=== PATIENT | female | born 1985 | race African-American/Black ===

== ENCOUNTER 2016-10-29 11:31 | Emergency (ER) | payer BC ==
[2016-10-29 11:49] VITALS: BP 105/57
[2016-10-29] MEDS ORDERED: LORazepam 2 MG/ML MDV IVPUSH ONE (12:20)
[2016-10-29] MEDS ORDERED: Albuterol 0.083% 2.5 MG/3 ML Neb Soln NEB ONE (12:20)
--- NOTE | 2016-10-29 12:22 | EDM.PDOC ---
ED HPI GENERAL MEDICAL PROBLEM - General Chief Complaint: Gastrointestinal Problem Stated Complaint: [facility] Time Seen by Provider: 10/29/16 12:12 Source of Information: Reports: Patient History Limitations: Reports: No Limitations - History of Present Illness INITIAL COMMENTS - FREE TEXT/NARRATIVE: Patient is a 30-year-old female who presents to the ED with a history of cough for the past 3 weeks. States this morning while going to court patient started to cough excessively causing cough-induced vomiting. She's vomited multiple times secondary to the cough. She was sent to the ED for further evaluation. States this past Friday she was evaluated by PCP diagnosed with seasonal allergies and started on Singulair and Claritin. She's been taking these medications as prescribed. States she is feeling quite anxious with the onset of symptoms. In addition she found out she had a bench warrant and was concerned about going to prison only exacerbating the cough. She has no fever no chills. Cough is nonproductive. She continues to have some sinus congestion and postnasal drip. Throat pain is minimal. She has no ear pain. Chest Pain Score (Numeric/FACES): 4 Abdominal Pain Score (Numeric/FACES): 3 - Related Data Allergies Allergy/AdvReac Type Severity Reaction Status Date / Time benzoyl peroxide Allergy Anaphylactic Verified 10/29/16 11:40 Shock latex Allergy Burning Verified 10/29/16 11:40 shellfish derived Allergy Anaphylactic Verified 10/29/16 11:40 Shock Home Meds: Home Meds Multivitamin with Minerals [Hair, Skin & Nails] 1 tab PO DAILY 08/27/15 [History ] Multivits,Ca,Minerals/Iron/FA [Women's Daily Formula Caplet] 1 tab PO DAILY 08/06 [History] Folic Acid 1 mg PO DAILY 03/30/16 [History] Nitrofurantoin [place]/Macrocryst [Macrobid] 100 mg PO BID 03/30/16 [History] Benzonatate [Tessalon Perles] 100 mg PO TID #21 cap 10/29/16 [Rx] Past Medical History - Past Health History Medical/Surgical History: Denies Medical/Surgical History HEENT History: Reports: Impaired Vision Other HEENT History: wears eyeglasses. 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 History: Reports: Headaches, Chronic - Infectious Disease History Infectious Disease History: Reports: Chicken Pox Social & Family History - Family History Family Medical History: Noncontributory - Tobacco Use Smoking Status *Q: Never Smoker Second Hand Smoke Exposure: No - Caffeine Use Caffeine Use: Reports: None - Recreational Drug Use Recreational Drug Use: No Drug Use in Last 12 Months: Yes Recreational Drug Type: Reports: Marijuana/Hashish Recreational Drug Use Frequency: Monthly - Living Situation & Occupation Living situation: Reports: Single, with Significant Other Occupation: Employed ED ROS GENERAL - Review of Systems Review Of Systems: See Below Constitutional: Denies: Fever, Chills, Decreased Appetite HEENT: Reports: Other (sinus congestion). Denies: Ear Pain, Rhinitis, Sinus Problem, Throat Pain (mild irritation), Throat Swelling Respiratory: Reports: Shortness of Breath, Cough. Denies: Wheezing, Pleuritic Chest Pain, Sputum, Hemoptysis GI/Abdominal: Reports: Nausea, Vomiting Neurological: Reports: No Symptoms Psychiatric: Reports: Anxiety ED EXAM, GENERAL - Physical Exam Exam: See Below Exam Limited By: No Limitations General Appearance: Alert, WD/WN, Anxious Ears: Normal External Exam, Normal Canal, Hearing Grossly Normal Nose: Normal Inspection, Normal Mucosa, No Blood Throat/Mouth: Normal Inspection, Normal Oropharynx, Normal Voice, No Airway Compromise Head: Atraumatic, Normocephalic Neck: Normal Inspection, Supple, Non-Tender. No: Lymphadenopathy (L), Lymphadenopathy (R) Respiratory/Chest: No Respiratory Distress, Lungs Clear, Normal Breath Sounds, No Accessory Muscle Use, Chest Non-Tender Cardiovascular: Normal Peripheral Pulses, Regular Rate, Rhythm, No Murmur Peripheral Pulses: 2+: Radial (L) GI/Abdominal: Normal Bowel Sounds, Soft, Non-Tender, No Organomegaly, No Distention Neurological: Alert, Oriented, CN II-XII Intact, Normal Cognition Psychiatric: Normal Affect, Anxious Skin Exam: Warm, Dry, Intact, Normal Color, No Rash Course - Vital Signs Last Recorded V/S: Last Vital Signs Temp 97.5 F 10/29/16 11:31 Pulse 105 H 10/29/16 11:31 Resp 24 H 10/29/16 11:31 BP 105/57 L 10/29/16 11:31 Pulse Ox 100 10/29/16 12:20 - Orders/Labs/Meds Orders: Active Orders 24 hr Category Date Time Status RT Aerosol Therapy [RC] ASDIRECTED Care 10/29/16 12:20 Active Chest 2V [CR] Stat Exams 10/29/16 12:20 Taken Labs: Laboratory Tests 10/29/16 10/29/16 10/29/16 Range/Units 12:30 12:30 12:30 WBC 6.80 (3.98-10.04) K/mm3 RBC 4.71 (3.98-5.22) M/mm3 Hgb 13.2 (11.2-15.7) gm/L Hct 40.5 (34.1-44.9) % MCV 86.0 (79.4-94.8) fl MCH 28.0 (25.6-32.2) pg MCHC 32.6 (32.2-35.5) g/dl RDW Std Deviation 41.0 (36.4-46.3) fL Plt Count 326 (182-369) K/mm3 MPV 10.5 (9.4-12.3) fl Neut % (Auto) 48.4 (34.0-71.1) % Lymph % (Auto) 42.2 (19.3-51.7) % [place] % (Auto) 7.6 (4.7-12.5) % Eos % (Auto) 0.9 (0.7-5.8) Baso % (Auto) 0.9 (0.1-1.2) % Neut # (Auto) 3.29 (1.56-6.13) K/mm3 Lymph # (Auto) 2.87 (1.18-3.74) K/mm3 [place] # (Auto) 0.52 H (0.24-0.36) K/mm3 Eos # (Auto) 0.06 (0.04-0.36) K/mm3 Baso # (Auto) 0.06 (0.01-0.08) K/mm3 Sodium 140 (136-145) mEq/L Potassium 3.9 (3.5-5.1) mEq/L Chloride 105 (98-107) mEq/L Carbon Dioxide 23 (21-32) mEq/L Anion Gap 15.9 H (5-15) BUN 13 (7-18) mg/dL Creatinine 0.9 (0.55-1.02) mg/dL Est Cr Clr Drug Dosing 85.56 mL/min Estimated GFR (MDRD) > 60 (>60) mL/min BUN/Creatinine Ratio 14.4 (14-18) Glucose 105 (74-106) mg/dL Calcium 10.1 (8.5-10.1) mg/dL Total Bilirubin 1.0 (0.2-1.0) mg/dL AST 18 (15-37) U/L ALT 19 (14-59) U/L Alkaline Phosphatase 64 (46-116) U/L C-Reactive Protein 0.5 (<1.0) mg/dL Total Protein 8.4 H (6.4-8.2) g/dl Albumin 4.7 (3.4-5.0) g/dl Globulin 3.7 gm/dL Albumin/Globulin Ratio 1.3 (1-2) HCG, Qual Negative (NEGATIVE) Meds: Medications Discontinued Medications Generic Name Dose Route Start Last Admin Trade Name Freq PRN Reason Stop Dose Admin Albuterol 2.5 mg 10/29/16 12:20 10/29/16 12:37 Proventil Neb Soln NEB 10/29/16 12:21 2.5 mg ONETIME ONE Administration Lorazepam 1 mg 10/29/16 12:20 10/29/16 12:25 Ativan IVPUSH 10/29/16 12:21 1 mg ONETIME ONE Administration - Re-Assessments/Exams Free Text/Narrative Re-Assessment/Exam: IV established by ambulance crew. Will obtain basic labs including CBC, chem 14 , CRP, and chest x-ray. Ordered albuterol neb treatment and Ativan 1 mg IVP. Labs reviewed with no concerning findings. CXR revealed normal chest x-ray. This was reviewed with Dr. Villegas. Patients cough has improved. Patients anxiety has settled down. Will discharge patient home with prescription for tessalon perles. Departure - Departure Time of Disposition: 14:26 Disposition: Home, Self-Care 01 Condition: Good Clinical Impression: Post-tussive vomiting, Upper respiratory infection with cough and congestion - Discharge Information Prescriptions: Benzonatate [Tessalon Perles] 100 mg PO TID #21 cap Instructions: Upper Respiratory Infection, Adult, Gastritis, Adult Referrals: Dannielle Lou PA [Primary Care Provider] - Forms: ED Department Discharge, ED Return to Work/School Form Additional Instructions: X-ray and labs were essentially normal. Cough is caused by a viral upper respiratory infection. Continue taking the Claritin and Singuliar as prescribed. Take Tessalon Perles 100 mg 3 times a day as needed. Push the fluids. Ensure adequate rest. Follow-up with her PCP the next week for reevaluation ensure this is resolving. No antibiotics required at this time. Return to ED for any new or worsening symptoms. - My Orders Last 24 Hours: My Active Orders 10/29/16 12:20 RT Aerosol Therapy [RC] ASDIRECTED Chest 2V [CR] Stat - Assessment/Plan Last 24 Hours: My Active Orders 10/29/16 12:20 RT Aerosol Therapy [RC] ASDIRECTED Chest 2V [CR] Stat
--- NOTE | 2016-10-30 08:02 | CR ---
Chest: Two-views of the chest were obtained. Comparison: Previous chest x-ray of 07/26/16. Heart size and mediastinum are within normal limits. Lungs are clear. Bony structures are within normal limits for the patient's age. Impression: 1. Nothing acute is identified on two-view chest x-ray. Diagnostic code #1
== END 2016-10-29 14:37 | disposition home or self-care (01) ==
LOC: SUPCPDRO 11:31 → JD.ED 11:31
DX: J06.9 Acute upper respiratory infection, unspecified (principal); R11.10 Vomiting, unspecified; Z79.899 Other long term (current) drug therapy; Z88.8 Allergy status to other drugs, medicaments and biological substances; Z91.013 Allergy to seafood; Z91.040 Latex allergy status
CPT/HCPCS: 36415; 71020; 80053; 84703; 85025; 86140; 94664; 96374; 99285; J2060; 99284

== ENCOUNTER 2016-10-30 08:13 | Emergency (ER) | payer BC ==
[2016-10-30] MEDS ORDERED: Codeine/Promethazine 10-6.25 MG/5 ML Syrup 5 ML UD Cup PO ONE (08:42)
[2016-10-30] MEDS ORDERED: Ondansetron 4 MG Tab.DIS PO ONE (08:42)
--- NOTE | 2016-10-30 08:55 | EDM.PDOC ---
ED HPI GENERAL MEDICAL PROBLEM - General Chief Complaint: Gastrointestinal Problem Stated Complaint: VOMITING Time Seen by Provider: 10/30/16 08:27 Source of Information: Reports: Patient History Limitations: Reports: No Limitations - History of Present Illness INITIAL COMMENTS - FREE TEXT/NARRATIVE: The patient presents from the clinic with complaints of not feeling well, cough , nausea and vomiting. She says she has not felt well for about 3 weeks. She had a productive cough that has gotten worse. She will cough to the point of vomiting. She has no fever or chills. She was here yesterday. She was arrested yesterday and she was at the [facility] and was coughing and vomiting. She was sent here by ambulance and was evaluated. She had a normal CXR and labs. She was given ativan and albuterol. She felt better and went home. She was given tensilon pearls for the cough. She went to [facility] today and they could not get her nausea and cough under control and they sent her here for evaluation. Onset: Gradual Duration: Week(s): (3) Improves with: Reports: None Worsens with: Reports: None Associated Symptoms: Reports: Cough, cough w sputum, Headaches, Nausea/Vomiting , Shortness of Breath. Denies: No Other Symptoms, Chest Pain, Fever/Chills Generalized Pain Score (Numeric/FACES): 9 - Related Data Allergies Allergy/AdvReac Type Severity Reaction Status Date / Time benzoyl peroxide Allergy Anaphylactic Verified 10/30/16 08:20 Shock latex Allergy Burning Verified 10/30/16 08:20 shellfish derived Allergy Anaphylactic Verified 10/30/16 08:20 Shock Home Meds: Home Meds Multivitamin with Minerals [Hair, Skin & Nails] 1 tab PO DAILY 08/27/15 [History ] Multivits,Ca,Minerals/Iron/FA [Women's Daily Formula Caplet] 1 tab PO DAILY 08/06 [History] Folic Acid 1 mg PO DAILY 03/30/16 [History] Nitrofurantoin [place]/Macrocryst [Macrobid] 100 mg PO BID 03/30/16 [History] Benzonatate [Tessalon Perles] 100 mg PO TID #21 cap 10/29/16 [Rx] Azithromycin [IJD: Azithromycin] 250 mg PO DAILY #6 tab 10/30/16 [Rx] Codeine/Promethazine [Phenergan with Codeine] 5 - 10 ml PO Q6HR PRN #300 ml 12/08 [Rx] Past Medical History - Past Health History Medical/Surgical History: Denies Medical/Surgical History HEENT History: Reports: Impaired Vision Other HEENT History: wears eyeglasses. 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, Chronic - Infectious Disease History Infectious Disease History: Reports: Chicken Pox Social & Family History - Family History Family Medical History: Noncontributory - Tobacco Use Smoking Status *Q: Never Smoker Second Hand Smoke Exposure: No - Caffeine Use Caffeine Use: Reports: None - Recreational Drug Use Recreational Drug Use: Yes Drug Use in Last 12 Months: Yes Recreational Drug Type: Reports: Marijuana/Hashish Recreational Drug Use Frequency: Monthly - Living Situation & Occupation Living situation: Reports: Single, with Significant Other Occupation: Employed ED ROS GENERAL - Review of Systems Review Of Systems: See Below Constitutional: Reports: No Symptoms HEENT: Reports: No Symptoms Respiratory: Reports: Shortness of Breath, Cough Cardiovascular: Reports: No Symptoms Endocrine: Reports: No Symptoms GI/Abdominal: Reports: No Symptoms : Reports: No Symptoms Musculoskeletal: Reports: No Symptoms Skin: Reports: No Symptoms Neurological: Reports: Headache ED EXAM, GI/ABD - Physical Exam Exam: See Below Exam Limited By: No Limitations General Appearance: Alert, No Apparent Distress Ears: Normal External Exam Nose: Normal Inspection Head: Atraumatic, Normocephalic Neck: Normal Inspection Respiratory/Chest: No Respiratory Distress, Lungs Clear, Normal Breath Sounds Cardiovascular: Regular Rate, Rhythm, No Edema, No Murmur GI/Abdominal Exam: Soft, Non-Tender, No Organomegaly, No Mass Back Exam: Normal Inspection Extremities: Normal Inspection Course - Vital Signs Last Recorded V/S: Last Vital Signs Temp 97.7 F 10/30/16 08:20 Pulse 98 10/30/16 08:20 Resp 28 H 10/30/16 08:20 BP 91/68 10/30/16 08:20 Pulse Ox 100 10/30/16 08:20 - Orders/Labs/Meds Orders: Active Orders 24 hr Category Date Time Status B. PERTUSSIS ABS, IGA, IGG,IGM [REF] Stat Lab 10/30/16 08:42 Ordered Meds: Medications Discontinued Medications Generic Name Dose Route Start Last Admin Trade Name Alfa PRN Reason Stop Dose Admin Ondansetron HCl 4 mg 10/30/16 08:42 Zofran Odt PO 10/30/16 08:43 ONETIME ONE Promethazine HCl/Codeine 10 ml 10/30/16 08:42 10/30/16 09:01 Phenergan With Codeine PO 10/30/16 08:43 10 ml ONETIME ONE Administration - Re-Assessments/Exams Free Text/Narrative Re-Assessment/Exam: 10/30/16 08:57 I will order a pertussis and give her phenergan with codeine and zofran 4mg ODT. 10/30/16 09:33 She did not want the zofran but the phenergan with codeine made her feel better. I will discharge her home with zithromax and some phenergan with codeine. Departure - Departure Time of Disposition: 09:35 Disposition: Home, Self-Care 01 Condition: Good Clinical Impression: Post-tussive vomiting, Bronchitis - Discharge Information Prescriptions: Codeine/Promethazine [Phenergan with Codeine] 5 - 10 ml PO Q6HR PRN #300 ml PRN Reason: Cough Azithromycin [IJD: Azithromycin] 250 mg PO DAILY #6 tab Referrals: Dannielle Lou PA [Primary Care Provider] - 1 Week Forms: ED Department Discharge Additional Instructions: Take the zithromax 2 pills on day 1 and 1 pill on days 2 through 5. Take the phenergan with codein 5 to 10mls by mouth every 6 hours as needed for cough. We will call you with the pertussis results. That may take a week. Please return if you are worse. - My Orders Last 24 Hours: My Active Orders 10/30/16 08:42 B. PERTUSSIS ABS, IGA, IGG,IGM [REF] Stat - Assessment/Plan Last 24 Hours: My Active Orders 10/30/16 08:42 B. PERTUSSIS ABS, IGA, IGG,IGM [REF] Stat
[2016-10-30 10:08] VITALS: BP 141/98
== END 2016-10-30 09:55 | disposition home or self-care (01) ==
LOC: JD.ED 08:13
DX: R11.2 Nausea with vomiting, unspecified (principal); J40 Bronchitis, not specified as acute or chronic; Z79.2 Long term (current) use of antibiotics; Z91.040 Latex allergy status; Z91.013 Allergy to seafood; Z88.8 Allergy status to other drugs, medicaments and biological substances; Z91.048 Other nonmedicinal substance allergy status
CPT/HCPCS: 87798; 99284; A9270; 99283

== ENCOUNTER 2017-01-14 18:20 | Emergency (ER) | payer BC, OTHER ==
[2017-01-14 18:34] VITALS: BP 147/99
[2017-01-14] MEDS ORDERED: Sodium Chloride 0.9% 10 ML Syringe FLUSH PRN (19:09)
[2017-01-14] MEDS ORDERED: Ondansetron 4 MG/2 ML SDV IVPUSH ONE (19:11)
[2017-01-14] MEDS ORDERED: Famotidine 20 MG/2 ML SDV IVPUSH ONE (19:12)
[2017-01-14] MEDS ORDERED: Iopamidol 612 MG/ML 100 ML Bottle IVPUSH ONE (19:19)
[2017-01-14] MEDS ORDERED: Sodium Chloride 0.9% 10 ML Syringe FLUSH ONE (19:19)
[2017-01-14] MEDS ORDERED: Metoclopramide 10 MG/2 ML SDV IVPUSH ONE (20:01)
--- NOTE | 2017-01-14 20:14 | CT ---
CT chest Technique: Multiple axial sections through the chest were obtained. Intravenous contrast was utilized. Comparison: No prior chest CT, previous chest x-ray of 10/29/16. Findings: Small portion of the visualized upper abdominal structures appear within normal limits. No pericardial effusion is seen. Mediastinum and hilar regions show no adenopathy or mass. Small lymph nodes within both axillary regions are seen which are felt to be within normal limits. Lungs are clear. No parenchymal densities are seen. No pleural effusion or pneumothorax is seen. Bone window settings were reviewed which appear within normal limits for the patient's age. Impression: 1. No abnormality is identified on CT study of the chest. Diagnostic code #1
--- NOTE | 2017-01-14 20:42 | EDM.PDOC ---
ED HPI GENERAL MEDICAL PROBLEM - General Chief Complaint: Chest Pain Stated Complaint: CHEST PAIN Time Seen by Provider: 01/14/17 18:42 Source of Information: Reports: Patient History Limitations: Reports: No Limitations - History of Present Illness INITIAL COMMENTS - FREE TEXT/NARRATIVE: 31-year-old female presents from the snf for evaluation treatment of chest pain. Patient reports that when she was first incarcerated on Friday she had to blow into some type of apparatus. She states thats when she first developed chest pain. She states that is steadily worsening of afternoon. She reports that she is having sharp stabbing chest pain. Reports associated symptoms of nausea and hemotemisis. Reports that she has vomited about 10 times today. No abdominal pain or diarrhea. She states that it hurts to breathe or cough. Reports that the pain radiates into her neck, bilateral arms and into her back. She denies any fevers. Patient denies any cardiac history self. She is not on any medications. . Does not her family history. 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: maalox given a long term Chest Pain Score (Numeric/FACES): 7 - Related Data Allergies Allergy/AdvReac Type Severity Reaction Status Date / Time adhesive tape Allergy Itching Verified 10/30/16 09:44 benzoyl peroxide Allergy Anaphylactic Verified 10/30/16 08:20 Shock latex Allergy Burning Verified 10/30/16 08:20 shellfish derived Allergy Anaphylactic Verified 10/30/16 08:20 Shock Home Meds: Home Meds Multivitamin with Minerals [Hair, Skin & Nails] 1 tab PO DAILY 08/27/15 [History ] Multivits,Ca,Minerals/Iron/FA [Women's Daily Formula Caplet] 1 tab PO DAILY 08/06 [History] Folic Acid 1 mg PO DAILY 03/30/16 [History] Omeprazole 20 mg PO DAILY #30 cap.cr 01/14/17 [Rx] Ondansetron [Zofran ODT] 4 mg PO Q8H PRN #15 tab.dis 01/14/17 [Rx] Past Medical History - Past Health History Medical/Surgical History: Denies Medical/Surgical History HEENT History: Reports: Impaired Vision Other HEENT History: wears eyeglasses. 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: Neurological History: Reports: Headaches, Chronic - Infectious Disease History Infectious Disease History: Reports: Chicken Pox Social & Family History - Family History Family Medical History: Noncontributory - Tobacco Use Smoking Status *Q: Never Smoker Second Hand Smoke Exposure: No - Caffeine Use Caffeine Use: Reports: None - Recreational Drug Use Recreational Drug Use: Yes Drug Use in Last 12 Months: Yes Recreational Drug Type: Reports: Marijuana/Hashish Recreational Drug Use Frequency: Monthly - Living Situation & Occupation Living situation: Reports: Single, with Significant Other Occupation: Employed ED ROS GENERAL - Review of Systems Review Of Systems: See Below Constitutional: Denies: Fever Respiratory: Reports: Shortness of Breath, Cough, Other (dyspnea) Cardiovascular: Reports: Chest Pain GI/Abdominal: Reports: Hematemesis, Nausea, Vomiting. Denies: Abdominal Pain, Diarrhea Musculoskeletal: Reports: Neck Pain, Arm Pain, Back Pain ED EXAM, GENERAL - Physical Exam Exam: See Below Exam Limited By: No Limitations General Appearance: Alert, WD/WN, Moderate Distress Ears: Normal External Exam Nose: Normal Inspection Throat/Mouth: Normal Inspection, Normal Oropharynx, Normal Voice, No Airway Compromise Neck: Normal Inspection Respiratory/Chest: No Respiratory Distress, Lungs Clear, Normal Breath Sounds Cardiovascular: Normal Peripheral Pulses, Regular Rate, Rhythm, No Murmur GI/Abdominal: Soft, Non-Tender Neurological: Alert, Oriented, Normal Cognition Psychiatric: Normal Affect, Normal Mood Skin Exam: Warm, Dry, Normal Color EKG INTERPRETATION EKG Date: 01/14/17 Time: 19:20 Rhythm: NSR Rate (Beats/Min): 74 [place]: Normal P-Wave: Present QRS: Normal ST-T: Normal QT: Normal EKG Interpretation Comments: NSR at 74 bpm. No acute changes. Reviewed by myself and Dr. Montes De Oca Course - Vital Signs Last Recorded V/S: Last Vital Signs Temp 36.4 C 01/14/17 18:30 Pulse 95 01/14/17 18:30 Resp BP 147/99 H 01/14/17 18:30 Pulse Ox - Orders/Labs/Meds Labs: Laboratory Tests 01/14/17 01/14/17 01/14/17 Range/Units 18:40 18:40 18:40 WBC 8.52 (3.98-10.04) K/mm3 RBC 4.74 (3.98-5.22) M/mm3 Hgb 13.6 (11.2-15.7) gm/L Hct 40.3 (34.1-44.9) % MCV 85.0 (79.4-94.8) fl MCH 28.7 (25.6-32.2) pg MCHC 33.7 (32.2-35.5) g/dl RDW Std Deviation 41.6 (36.4-46.3) fL Plt Count 380 H (182-369) K/mm3 MPV 10.8 (9.4-12.3) fl Neutrophils % (Manual) 62 H (40-60) % Band Neutrophils % 0 (0-10) % Lymphocytes % (Manual) 30 (20-40) % Atypical Lymphs % 0 % Monocytes % (Manual) 5 (2-10) % Eosinophils % (Manual) 1 (0.7-5.8) % Basophils % (Manual) 2 H (0.1-1.2) Platelet Estimate Adequate Plt Morphology Comment Normal RBC Morph Comment Normal D-Dimer, Quantitative 0.26 (0.19-0.59) mg/L Sodium 140 (136-145) mEq/L Potassium 3.6 (3.5-5.1) mEq/L Chloride 103 (98-107) mEq/L Carbon Dioxide 22 (21-32) mEq/L Anion Gap 18.6 H (5-15) BUN 16 (7-18) mg/dL Creatinine 1.0 (0.55-1.02) mg/dL Est Cr Clr Drug Dosing 73.35 mL/min Estimated GFR (MDRD) > 60 (>60) mL/min BUN/Creatinine Ratio 16.0 (14-18) Glucose 109 H (74-106) mg/dL Calcium 10.3 H (8.5-10.1) mg/dL Total Bilirubin 1.5 H (0.2-1.0) mg/dL AST 19 (15-37) U/L ALT 18 (14-59) U/L Alkaline Phosphatase 78 (46-116) U/L Troponin I < 0.017 (0.00-0.056) ng/mL Total Protein 8.8 H (6.4-8.2) g/dl Albumin 4.5 (3.4-5.0) g/dl Globulin 4.3 gm/dL Albumin/Globulin Ratio 1.1 (1-2) Lipase 65 L (73-393) U/L HCG, Qual (NEGATIVE) 01/14/17 Range/Units 18:40 WBC (3.98-10.04) K/mm3 RBC (3.98-5.22) M/mm3 Hgb (11.2-15.7) gm/L Hct (34.1-44.9) % MCV (79.4-94.8) fl MCH (25.6-32.2) pg MCHC (32.2-35.5) g/dl RDW Std Deviation (36.4-46.3) fL Plt Count (182-369) K/mm3 MPV (9.4-12.3) fl Neutrophils % (Manual) (40-60) % Band Neutrophils % (0-10) % Lymphocytes % (Manual) (20-40) % Atypical Lymphs % % Monocytes % (Manual) (2-10) % Eosinophils % (Manual) (0.7-5.8) % Basophils % (Manual) (0.1-1.2) Platelet Estimate Plt Morphology Comment RBC Morph Comment D-Dimer, Quantitative (0.19-0.59) mg/L Sodium (136-145) mEq/L Potassium (3.5-5.1) mEq/L Chloride (98-107) mEq/L Carbon Dioxide (21-32) mEq/L Anion Gap (5-15) BUN (7-18) mg/dL Creatinine (0.55-1.02) mg/dL Est Cr Clr Drug Dosing mL/min Estimated GFR (MDRD) (>60) mL/min BUN/Creatinine Ratio (14-18) Glucose (74-106) mg/dL Calcium (8.5-10.1) mg/dL Total Bilirubin (0.2-1.0) mg/dL AST (15-37) U/L ALT (14-59) U/L Alkaline Phosphatase (46-116) U/L Troponin I (0.00-0.056) ng/mL Total Protein (6.4-8.2) g/dl Albumin (3.4-5.0) g/dl Globulin gm/dL Albumin/Globulin Ratio (1-2) Lipase (73-393) U/L HCG, Qual Negative (NEGATIVE) Meds: Medications Discontinued Medications Generic Name Dose Route Start Last Admin Trade Name Alfa PRN Reason Stop Dose Admin Famotidine 20 mg 01/14/17 19:12 01/14/17 19:20 Pepcid IVPUSH 01/14/17 19:13 20 mg ONETIME ONE Administration Iopamidol 100 ml 01/14/17 19:19 01/14/17 19:55 Isovue-300 (61%) IVPUSH 01/14/17 19:20 100 ml ONETIME ONE Administration Metoclopramide HCl 10 mg 01/14/17 20:01 01/14/17 20:17 Reglan IVPUSH 01/14/17 20:02 10 mg ONETIME ONE Administration Ondansetron HCl 4 mg 01/14/17 19:11 01/14/17 19:20 Zofran IVPUSH 01/14/17 19:12 4 mg ONETIME ONE Administration Sodium Chloride 10 ml 01/14/17 19:09 01/14/17 19:22 Saline Flush FLUSH 10 ml ASDIRECTED PRN Administration Keep Vein Open Sodium Chloride 10 ml 01/14/17 19:19 01/14/17 19:55 Saline Flush FLUSH 01/14/17 19:20 10 ml ONETIME ONE Administration - Radiology Interpretation Free Text/Narrative:: CT of the chest with IV contrast impression per Vrad 1. Normal chest CT. No signs of esophageal rupture. - Re-Assessments/Exams Free Text/Narrative Re-Assessment/Exam: 01/14/17 20:48 I reviewed the chest CT, EKG and lab results with the patient. I fill this is gastritis. I'll give her some Zofran as needed for nausea and some omeprazole for the discomfort. I'll have her follow up in 1-2 weeks for recheck of her symptoms. Her discomfort has resolved with medication. Discharge instructions as documented. Departure - Departure Time of Disposition: 20:47 Disposition: Home, Self-Care 01 Condition: Good Clinical Impression: Gastroesophageal reflux disease Prescriptions: Omeprazole 20 mg PO DAILY #30 cap.cr Ondansetron [Zofran ODT] 4 mg PO Q8H PRN #15 tab.dis PRN Reason: Nausea Instructions: Food Choices for Gastroesophageal Reflux Disease, Adult, Easy-to- Read, Gastroesophageal Reflux Disease, Adult Referrals: PCP,None [Primary Care Provider] - Forms: ED Department Discharge Additional Instructions: Omeprazole 1 tablet daily. Zofran 1 tab sublingual every 8 hours as needed for nausea. Recommend avoiding spicy foods. Follow-up with family medicine within 1-2 weeks for recheck of your symptoms. If you need a family practice provider in [place] recommend [facility] or [facility]. Please call [phone] to schedule with either one of these providers. Please return to the ER if your symptoms change or worsen.
--- NOTE | 2017-01-15 08:06 | CR ---
Chest: Portable view of the chest was obtained. Comparison: Prior chest x-ray of 10/29/16. Heart size and mediastinum are within normal limits. Lungs are clear. Bony structures are grossly intact. Impression: 1. Nothing acute is identified on portable chest x-ray. Diagnostic code #1
== END 2017-01-14 21:16 | disposition home or self-care (01) ==
LOC: JD.ED 18:20
DX: K21.9 Gastro-esophageal reflux disease without esophagitis (principal); Z91.040 Latex allergy status; Z91.013 Allergy to seafood
CPT/HCPCS: 36415; 71010; 71260; 80053; 83690; 84484; 84703; 85025; 85379; 93005; 96374; 96375; 99285; J2405; J2765; J7050; Q9967

== ENCOUNTER 2017-06-14 13:59 | Emergency (ER) | payer MEDICAID, OTHER ==
[2017-06-14 14:12] VITALS: BP 109/75
--- NOTE | 2017-06-14 14:54 | EDM.PDOC ---
ED HPI GENERAL MEDICAL PROBLEM - General Chief Complaint: Respiratory Problem Stated Complaint: COUGH Time Seen by Provider: 06/14/17 14:46 Source of Information: Reports: Patient History Limitations: Reports: No Limitations - History of Present Illness INITIAL COMMENTS - FREE TEXT/NARRATIVE: 31-year-old female presents to the ED with severe paroxysmal productive cough. Sputum was initially dark green but is now more clear. The problem is she can't stop coughing. She costal almost she blacks out or has emesis. She does not have a history of asthma. She does not smoke cigarettes. Doesn't remember developing any body aches headaches or severe fever chills at the initial onset of illness over 8 days ago. 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 Onset: Sudden Onset Date: 06/06/17 Duration: Day(s): Location: Reports: Chest (Severe paroxysmal cough occasionally productive.) Quality: Reports: Other Severity: Moderate (Hurts to cough so much in her mid chest) Improves with: Reports: None Worsens with: Reports: Other (Exposure to cool night air and cigarette smoke.), Movement (Worse with certain movements in supine position) Context: Reports: Sick Contact. Denies: Activity, Exercise, Lifting, Trauma, Other (Coworker) Associated Symptoms: Reports: Chest Pain, Cough, cough w sputum, Malaise, Shortness of Breath, Syncope. 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 Chest Pain Score (Numeric/FACES): 9 - Related Data Allergies Allergy/AdvReac Type Severity Reaction Status Date / Time adhesive tape Allergy Itching Verified 06/14/17 14:13 benzoyl peroxide Allergy Anaphylactic Verified 06/14/17 14:13 Shock latex Allergy Burning Verified 06/14/17 14:13 shellfish derived Allergy Anaphylactic Verified 06/14/17 14:13 Shock Home Meds: Home Meds Chlorpheniramine/HYDROcodone [Tussionex Pennkinetic] 5 ml PO Q12H PRN #60 ml [Rx] Levofloxacin [Levaquin] 500 mg PO DAILY #8 tab 06/14/17 [Rx] Past Medical History - Past Health History Medical/Surgical History: Denies Medical/Surgical History HEENT History: Reports: Impaired Vision Other HEENT History: wears eyeglasses. 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: Neurological History: Reports: Headaches, Chronic - Infectious Disease History Infectious Disease History: Reports: Chicken Pox Social & Family History - Family History Family Medical History: Noncontributory - Tobacco Use Smoking Status *Q: Never Smoker Second Hand Smoke Exposure: No - Caffeine Use Caffeine Use: Reports: None - Recreational Drug Use Recreational Drug Use: No Drug Use in Last 12 Months: Yes Recreational Drug Type: Reports: Marijuana/Hashish Recreational Drug Use Frequency: Monthly - Living Situation & Occupation Living situation: Reports: Single, with Significant Other Occupation: Employed ED ROS GENERAL - Review of Systems Review Of Systems: See Below Constitutional: Reports: Fever, Malaise, Weakness, Fatigue, Decreased Appetite, Weight Loss HEENT: Reports: No Symptoms, Throat Pain Respiratory: Reports: Shortness of Breath (Coughing so much), Cough, Sputum. Denies: Wheezing, Pleuritic Chest Pain, Hemoptysis (Mostly clear sputum) Cardiovascular: Reports: Chest Pain, Lightheadedness. Denies: Blood Pressure Problem, Claudication, Dyspnea on Exertion (From coughing so hard at times he nearly blacks out), Edema, Orthopnea (From coughing so much), Palpitations, PND , Syncope Endocrine: Reports: Fatigue GI/Abdominal: Reports: Decreased Appetite : Reports: No Symptoms Musculoskeletal: Reports: No Symptoms Skin: Reports: No Symptoms Neurological: Reports: No Symptoms Psychiatric: Reports: No Symptoms Hematologic/Lymphatic: Reports: No Symptoms Immunologic: Reports: No Symptoms ED EXAM, GENERAL - Physical Exam Exam: See Below Exam Limited By: Physical Impairment General Appearance: Alert (Noted by severe paroxysmal intermittent coughing which makes it difficult for her to even speak.), WD/WN, No Apparent Distress, Other (Does feel mildly warm to palpation.) Eye Exam: Bilateral Eye: Normal Inspection Ears: Other (Is a left serous otitis media. Right TM is normal) Throat/Mouth: Normal Inspection, Normal Lips, Normal Teeth, Normal Oropharynx Head: Atraumatic, Normocephalic Neck: Normal Inspection, Supple, Non-Tender, Full Range of Motion. No: Lymphadenopathy (L), Lymphadenopathy (R) Respiratory/Chest: No Respiratory Distress, No Accessory Muscle Use, Respiratory Distress (Mild tachypnea at rest.), Rhonchi (Scattered fine rhonchi left upper lobe of lung that does not clear with coughing.). No: Wheezing Cardiovascular: Normal Peripheral Pulses, Regular Rate, Rhythm, No Edema, No Gallop, No Murmur Peripheral Pulses: 3+: Posterior Tibial (L), Posterior Tibial (R), Dorsalis Pedis (L), Dorsalis Pedis (R) GI/Abdominal: Normal Bowel Sounds, Soft, Non-Tender, No Organomegaly, No Abnormal Bruit, No Mass, Pelvis Stable Back Exam: Normal Inspection, Full Range of Motion. No: CVA Tenderness (L), CVA Tenderness (R) Extremities: Normal Inspection, Normal Range of Motion, Non-Tender, No Pedal Edema Neurological: Alert, Oriented, Normal Cognition Course - Vital Signs Last Recorded V/S: Last Vital Signs Temp 36.9 C 06/14/17 14:08 Pulse 74 06/14/17 16:55 Resp 19 06/14/17 14:08 BP 109/75 06/14/17 14:08 Pulse Ox 100 06/14/17 16:55 - Orders/Labs/Meds Orders: Active Orders 24 hr Category Date Time Status RT Aerosol Therapy [RC] ASDIRECTED Care 06/14/17 14:55 Active Chest 2V [CR] Stat Exams 06/14/17 15:05 Taken Labs: Laboratory Tests 06/14/17 Range/Units 14:55 Urine HCG, Qual Negative (NEGATIVE) Meds: Medications Discontinued Medications Generic Name Dose Route Start Last Admin Trade Name Freq PRN Reason Stop Dose Admin Budesonide 0.5 mg 06/14/17 14:55 06/14/17 15:12 Pulmicort NEB 06/14/17 14:56 0.5 mg ONETIME ONE Administration - Radiology Interpretation Free Text/Narrative:: 31-year-old female presents to the ED with severe paroxysmal cough to the point of near passing out or having emesis due to the severity of the cough. It's worse when she lies down. Her initial onset of high fever chills or headache to suggest influenza. She is working with a coworker who was diagnosed with pneumonia. She has no history of asthma and is a nonsmoker. Examination reveals no wheezing. There is a few scattered rhonchi left upper lobe of lung. Plan she not sure she could be therefore an hCG will be done on the urine. After this a 2 view chest x-ray will be ordered. I will order a dose of Pulmicort via nebulizer for her to help settle down her ear 10 receptors in her upper airway in the meantime. - Re-Assessments/Exams Free Text/Narrative Re-Assessment/Exam: 06/14/17 16:42 urine hCG was negative. Therefore two-view x-ray was obtained. It reveals no abnormalities noted to suggest pneumonia. Silhouette is normal. Diagnosis is bronchitis. Therefore be placed on Levaquin 500 milligrams once daily for the next 8 days Tussionex cough syrup 5 mils every 12 hours when necessary for cough relief. 06/14/17 17:00: I wrote this patient is prescription for a nebulizer machine that she could purchase from [employer] next week if she is not markedly improved over the next 3-4 days. Also a prescription for Pulmicort Nebules 0.5 mg per 2 mils to be used 3 times a day until cough is gone for 3 days. She would have enough medication to last her 12 days. She will fill this only if she does not markedly improved with above treatment. Of note she noticed the Pulmicort given in the ED was quite dramatic in relieving her severe cough. Departure - Departure Time of Disposition: 16:43 Disposition: Home, Self-Care 01 Condition: Fair Clinical Impression: Bronchitis - Discharge Information Prescriptions: Chlorpheniramine/HYDROcodone [Tussionex Pennkinetic] 5 ml PO Q12H PRN #60 ml PRN Reason: cough relief Levofloxacin [Levaquin] 500 mg PO DAILY #8 tab Instructions: Acute Bronchitis, Adult, [id number] Referrals: Deisi Dominguez LABORATORY DIRECTOR [Primary Care Provider] - Forms: ED Department Discharge, ED Return to Work/School Form Additional Instructions: Evaluation the emergency room today in regards to severe paroxysmal cough and bronchitis symptoms for over a week. was need to be ruled out and therefore you're impinged test was done and it is negative. Two-view chest x- ray was then performed to rule out a pneumonia. No pneumonia is identified. Diagnosis is bronchitis with severe paroxysmal cough. The Levaquin antibiotic 500 mg once daily for the next 8 days to clear up infection. Tussionex cough syrup 5 mils every 12 hours necessary for cough relief. This ideally stick in about an hour before bedtime to help with cough. If he needed during the daytime suggest only half a dose. It can produce quite significant sedation in some people. - My Orders Last 24 Hours: My Active Orders 06/14/17 14:55 RT Aerosol Therapy [RC] ASDIRECTED 06/14/17 15:05 Chest 2V [CR] Stat - Assessment/Plan Last 24 Hours: My Active Orders 06/14/17 14:55 RT Aerosol Therapy [RC] ASDIRECTED 06/14/17 15:05 Chest 2V [CR] Stat
[2017-06-14] MEDS ORDERED: Budesonide 0.5 MG/2 ML Neb Susp NEB ONE (14:55)
--- NOTE | 2017-06-15 12:27 | CR ---
Chest: Two views were obtained. Comparison: Prior chest x-ray of 01/14/17. Heart size and mediastinum are normal. Lungs are clear. Bony structures are unremarkable. Impression: 1. Nothing acute is seen on two-view chest x-ray. Diagnostic code #1
== END 2017-06-14 17:00 | disposition home or self-care (01) ==
LOC: JD.ED 13:59
DX: J40 Bronchitis, not specified as acute or chronic (principal); Z91.040 Latex allergy status; Z91.013 Allergy to seafood; Z91.09 Other allergy status, other than to drugs and biological substances
CPT/HCPCS: 71046; 71046-26; 81025; 94640; 99283; 99284-25

== ENCOUNTER 2018-12-08 11:52 | Emergency (ER) | payer OTHER ==
[2018-12-08 11:59] VITALS: BP 143/107; PULSE 90
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
== END 2018-12-08 12:42 | disposition home or self-care (01) ==
LOC: JD.ED 11:52
DX: S16.1XXA Strain of muscle, fascia and tendon at neck level, initial encounter (principal); R51 Headache; Z91.048 Other nonmedicinal substance allergy status; Z91.018 Allergy to other foods; Z91.040 Latex allergy status; Z91.013 Allergy to seafood; Z88.8 Allergy status to other drugs, medicaments and biological substances; V47.5XXA Car driver injured in collision with fixed or stationary object in traffic accident, initial encounter
CPT/HCPCS: 99283

== ENCOUNTER 2019-06-25 05:00 | Emergency (ER) | payer OTHER ==
[2019-06-25 05:14] VITALS: BP 128/53; PULSE 123
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
[2019-06-25] MEDS ORDERED: Ondansetron 4 MG/2 ML SDV IVPUSH ONE (06:08)
[2019-06-25] MEDS ORDERED: Sodium Chloride 0.9% 1,000 ML IV SCH (06:15)
--- NOTE | 2019-06-25 06:49 | CR ---
Chest: 2 views of the chest were obtained. Comparison: Prior chest x-ray of 03/27/18. Heart size appears slightly prominent. This is an interval change from prior chest x-ray. Upper mediastinum is normal. Lungs are clear with no acute parenchymal change. Impression: 1. Heart size is slightly prominent. Consider echocardiogram to confirm. 2. Nothing acute is otherwise seen on 2 view chest x-ray. Diagnostic code #3 This report was dictated in MDT
== END 2019-06-25 08:56 ==
LOC: JD.ED 05:00
DX: R05 Cough (principal); Z88.8 Allergy status to other drugs, medicaments and biological substances; Z91.013 Allergy to seafood; Z91.040 Latex allergy status; Z91.018 Allergy to other foods; Z91.048 Other nonmedicinal substance allergy status; Z79.899 Other long term (current) drug therapy; Z20.828 Contact with and (suspected) exposure to other viral communicable diseases
CPT/HCPCS: 36415; 71046; 71046-26; 80053; 82550; 82728; 83605; 83615; 83735; 83880; 85007; 85027; 85379; 85610; 85730; 86140; 87804; 99283; 99283-25; U0002

== ENCOUNTER 2023-01-10 03:49 | Emergency (ER) | payer SELFPAY ==
[2023-01-10 04:18] LABS: BASOPHILS ABSOLUTE AUTO 0.1 K/mm3 (0.0-0.2); BASOPHILS PERCENT AUTO 0.9 % (0.0-1.0); EOSINOPHILS ABSOLUTE AUTO 0.2 K/mm3 (0.0-0.4); EOSINOPHILS PERCENT AUTO 3.8 % (0.0-6.0); HEMOGLOBIN 12.7 gm/dl (12.0-16.0); IMMATURE GRAN ABSOLUTE AUTO 0.01 K/mm3 (0.00-0.05); IMMATURE GRAN PERCENT AUTO 0.2 % (0.0-0.4); LYMPHOCYTES ABSOLUTE AUTO 3.1 K/mm3 (1.0-4.8); LYMPHOCYTES PERCENT AUTO 49.4 % (24.0-44.0); MEAN CORPUSCULAR HEMOGLOBIN 29.4 pg (28.0-32.0); MEAN CORPUSCULAR HGB CONC 32.6 g/dl (32.0-36.0); MEAN CORPUSCULAR VOLUME 90.3 fl (83.0-99.0); MEAN PLATELET VOLUME 9.5 fl (9.4-12.3); MONOCYTES ABSOLUTE AUTO 0.5 K/mm3 (0.0-0.8); MONOCYTES PERCENT AUTO 7.7 % (0.0-8.0); NEUTROPHILS ABSOLUTE AUTO 2.4 K/mm3 (1.8-7.7); PLATELET COUNT,PLT 281 K/mm3 (150-400); RED BLOOD CELL COUNT 4.32 M/mm3 (4.10-5.30); WHITE BLOOD CELL COUNT,WBC 6.33 K/mm3 (3.9-11.3)
[2023-01-10 04:27] LABS: APPEARANCE,URINE CLEAR (Clear); BILIRUBIN,URINE NEGATIVE (Negative); COLOR,URINE YELLOW (Yellow); GLUCOSE,URINE NEGATIVE (Negative); KETONES,URINE NEGATIVE (Negative); LEUKOCYTE ESTERASE,URINE NEGATIVE (Negative); NITRITE,URINE NEGATIVE (Negative); OCCULT BLOOD,URINE NEGATIVE (Negative); PROTEIN,URINE TRACE (Negative)
[2023-01-10 04:45] LABS: BACTERIA,URINE FEW /hpf (FEW); MUCUS,URINE MANY /hpf (FEW); RBC,URINE 0-5 /hpf (0-5); WBC,URINE 0-5 /hpf (0-5)
[2023-01-10 04:46] LABS: BARBITURATE SCREEN,URINE NEGATIVE (CUTOFF=200); BENZODIAZEPINES SCREEN,URINE NEGATIVE (CUTOFF=150); BUPRENORPHINE SCREEN,URINE NEGATIVE (CUTOFF=10); METHADONE SCREEN, URINE NEGATIVE (CUTOFF=200); METHAMPHETAMINES SCREEN, URINE NEGATIVE (CUTOFF=500); OXYCODONE SCREEN,URINE NEGATIVE (CUT0FF=100); PROPOXYPHENE SCREEN,URINE NEGATIVE (CUTOFF=300); THC SCREEN,URINE 20 NG/ML PRESUMPTIVE POSITIVE (CUTOFF=50)
[2023-01-10 04:47] LABS: AMPHETAMINES SCREEN, URINE NEGATIVE (CUTOFF=500)
[2023-01-10 04:50] LABS: A/G RATIO 1.1 (1-2); ALBUMIN 3.8 g/dl (3.4-5.0); ANION GAP 15.9 (5-15); BILIRUBIN TOTAL 0.9 mg/dL (0.2-1.0); BUN/CREATININE RATIO 13.8 (14-18); CREATININE 0.8 mg/dL (0.55-1.02); EST CRCL DRUG DOSING (CG) 86.64 mL/min; POTASSIUM,K 3.9 mEq/L (3.5-5.1); PROTEIN TOTAL,TP 7.4 g/dl (6.4-8.2)
[2023-01-10 05:41] LABS: CORONAVIRUS COVID-19 NAA NEGATIVE (NEGATIVE); INFLUENZA A NAA NEGATIVE (NEGATIVE); RESPIRATORY SYNCYTIAL VIR NAA NEGATIVE (NEGATIVE)
[2023-01-10 06:13] VITALS: BP 142/106; PULSE 72
== END 2023-01-10 06:05 | disposition home or self-care (01) ==
LOC: JD.ED 03:49
DX: F19.90 Other psychoactive substance use, unspecified, uncomplicated (principal); R53.81 Other malaise; R53.83 Other fatigue; Z91.048 Other nonmedicinal substance allergy status; Z91.018 Allergy to other foods; Z88.8 Allergy status to other drugs, medicaments and biological substances; Z91.040 Latex allergy status; Z91.013 Allergy to seafood; Z20.822 Contact with and (suspected) exposure to COVID-19
CPT/HCPCS: 0241U; 36415; 71046; 80053; 80306; 81001; 81025; 85025; 99283